=== PATIENT | male | born 1970 | race Caucasian/White ===

== ENCOUNTER 2016-12-20 19:35 | Emergency (ER) | payer OTHER ==
[~2016-12-20] VITALS: Ht 182.9 cm; Wt 101.2 kg
--- NOTE | 2016-12-20 20:38 | PHYS DOC ---
Adult General Chief Complaint Chief Complaint: CHEMICAL EXPOSURE [facility] HPI Patient is a 46 year old male presenting to the emergency department for evaluation of formaldehyde exposure approximately 1 PM this afternoon. Patient is a garbage truck helper and states that he was transporting hazmat materials when the formaldehyde had a hole poked in it and was leaking into his truck cab and that he opened the doors and the fumes hit him and he was exposed to a for approximately 10 minutes at most as he went back to the truck for 2-3 minutes at a time trying to clean it up. He said that initially his eyes are watery and he felt slightly short of breath and dizzy. Continued to feel off this afternoon but no specific symptoms such as shortness of breath fevers chills or vomiting. He did feel slightly nauseated with a headache but those symptoms have resolved as well. Nurse spoke to [facility] who states that the most concerning symptoms are usually airway including asthma or other shortness of breath. He is experiencing and his symptoms at this time. Review of Systems Review of Systems Constitutional: Denies fever or chills [] Eyes: Denies change in visual acuity, redness, or eye pain [] HENT: Denies nasal congestion or sore throat [] Respiratory: Denies cough or shortness of breath [] Cardiovascular: No additional information not addressed in HPI [] GI: Denies abdominal pain, nausea, vomiting, bloody stools or diarrhea [] Neurologic: Denies headache, focal weakness or sensory changes [] Physical Exam Physical Exam Constitutional: Well developed, well nourished, no acute distress, non-toxic appearance. [] HENT: Normocephalic, atraumatic, bilateral external ears normal, oropharynx moist, no oral exudates, nose normal. [] Eyes: PERRLA, EOMI, conjunctiva normal, no discharge. [] Neck: Normal range of motion, no tenderness, supple, no stridor. [] Cardiovascular:Heart rate regular rhythm, no murmur [] Lungs & Thorax: Bilateral breath sounds clear to auscultation [] Abdomen: Bowel sounds normal, soft, no tenderness, no masses, no pulsatile masses. [] Skin: Warm, dry, no erythema, no rash. [] Back: No tenderness, no CVA tenderness. [] Extremities: No tenderness, no cyanosis, no clubbing, ROM intact, no edema. [] Neurologic: Alert and oriented X 3, normal motor function, normal sensory function, no focal deficits noted. [] EKG EKG [] Radiology/Procedures Radiology/Procedures [] Course & Med Decision Making Course & Med Decision Making Patient with formaldehyde exposure and he is basically at baseline and I am not concerned about him and poison [facility] states there is no concerning things to be looking for at this point in time. Patient will be told to ensure he changes his closed takes a shower rinse his mouth and follow with his primary care provider in the next 2-3 days and comes back to the ED with any concerning symptoms. Patient aware and agreeable with plan and verbalized understanding of the above instructions. Dragon Disclaimer Dragon Disclaimer This electronic medical record was generated, in whole or in part, using a voice recognition dictation system. Departure Departure Impression: Primary Impression: Toxic effect of formaldehyde Disposition: 01 HOME, SELF-CARE Condition: STABLE Referrals: NO PCP (PCP) Patient Instructions: Chemical Inhalation Problem Qualifiers Primary Impression: Toxic effect of formaldehyde Encounter type: initial encounter Injury intent: accidental or unintentional Qualified Codes: T59.2X1A - Toxic effect of formaldehyde, accidental (unintentional), initial encounter DA GASTELUM DO Dec 20, 2016 20:37
[2016-12-20 21:07] VITALS: BP 117/86
== END 2016-12-20 21:05 | disposition home or self-care (01) ==
LOC: ER 19:35
DX: T59.2X1A Toxic effect of formaldehyde, accidental (unintentional), initial encounter (principal); Y92.89 Other specified places as the place of occurrence of the external cause
CPT/HCPCS: 99281